=== PATIENT | female | born 1965 | race Hispanic/Latino ===

== ENCOUNTER 2016-09-12 07:13 | Day surgery (SDC) | payer OTHER ==
[2016-09-12 08:21] VITALS: BMI 26.6
[2016-09-12] MEDS ORDERED: Propofol 10 mg/ml Inj (20 ML) ONE (08:40)
[2016-09-12] MEDS ORDERED: Midazolam 2 MG/2 ML VIAL ONE (08:40)
--- NOTE | 2016-09-12 08:44 | CP.SDSHP ---
Same Day Surgery H & P - History Proposed Procedure: EGD Pre-Op Diagnosis: SEE NOTES - Previous Medical/Surgical History Cardiac: Hypertension Endocrine/Metabolic: Diabetes Neuro: Backaches Misc: Other Pain: 4.Moderate Pain - Allergies Allergies: Allergies Penicillins Allergy (Verified 04/04/16 13:02) ANAPHYLAXIS - Physical Exam General Appearance: N Vital Signs: Vital Signs 09/12/16 09/12/16 07:51 08:38 Temperature 97.8 F 97.8 F Pulse Rate 102 H 102 H Respiratory 16 16 Rate Blood Pressure 167/102 H 167/102 H O2 Sat by Pulse 100 100 Oximetry Mental Status: Alert & Oriented x3 Neuro: WNL Heart: Other Lungs: WNL GI: Other - {Optional Preform as Required} Breast: WNL Abdomen: Other Rectal: Other Integument: WNL : WNL Ortho: Other ENT: WNL - Impression Pt. Evaluated Today:Candidate for Anesthesia & Procedure: Yes - Date & Time Time: 08:43 Short Stay Discharge - Short Stay Discharge Admitting Diagnosis/Reason for Visit: DYSPEPSIA Disposition: HOME/ ROUTINE
[2016-09-12] MEDS ORDERED: Pantoprazole 40 mg EC Tab PO ONE (09:00)
[2016-09-12] MEDS ORDERED: Belladonna-Phenobarbital PO ONE (09:00)
[2016-09-12 09:12] VITALS: TEMP 98
[2016-09-12 09:42] VITALS: O2SAT 99
[2016-09-12 09:48] VITALS: RESP 18
[2016-09-12 10:08] VITALS: BP 145/88; PULSE 84
== END 2016-09-12 10:07 | disposition home or self-care (01) ==
LOC: C.ENDO 07:13
PROVIDERS: ATTEND Specialist
DX: K25.7 Chronic gastric ulcer without hemorrhage or perforation (principal); K44.9 Diaphragmatic hernia without obstruction or gangrene; B96.81 Helicobacter pylori [H. pylori] as the cause of diseases classified elsewhere
CPT/HCPCS: 43239; 82948; 88305; 88342; J2250; J2704

== ENCOUNTER 2017-02-20 05:51 | Day surgery (SDC) | payer OTHER ==
[2017-02-13 12:01] VITALS: BMI 30.2
[2017-02-20] MEDS ORDERED: Propofol 10 mg/ml Inj (20 ML) ONE (07:49)
[2017-02-20] MEDS ORDERED: Lidocaine Hydrochloride 5 ML INJ ONE (07:50)
--- NOTE | 2017-02-20 07:54 | CP.SDSHP ---
Same Day Surgery H & P - History Proposed Procedure: EGD Pre-Op Diagnosis: SEE NOTES - Previous Medical/Surgical History Cardiac: Hypertension Endocrine/Metabolic: Diabetes, Other Misc: Other Pain: 4.Moderate Pain - Allergies Allergies: Allergies Penicillins Allergy (Verified 12/31/16 08:50) ANAPHYLAXIS - Physical Exam General Appearance: N Vital Signs: Vital Signs 02/20/17 06:31 Temperature 97.6 F Pulse Rate 80 Respiratory 20 Rate Blood Pressure 192/101 H O2 Sat by Pulse 97 Oximetry Mental Status: Alert & Oriented x3 Neuro: WNL Heart: Other Lungs: WNL GI: WNL - {Optional Preform as Required} Breast: WNL Abdomen: Other Rectal: Other Integument: WNL : WNL Ortho: WNL ENT: WNL - Impression Pt. Evaluated Today:Candidate for Anesthesia & Procedure: Yes - Date & Time Time: 07:54 Short Stay Discharge - Short Stay Discharge Admitting Diagnosis/Reason for Visit: FUNCTIONAL DYSPEPSIA Disposition: HOME/ ROUTINE Referrals: Terry Qeuen JD, MD [Primary Care Provider] -
[2017-02-20] MEDS ORDERED: Lactated Ringer's 500 ML IV SCH (08:00)
[2017-02-20 08:37] VITALS: TEMP 98
[2017-02-20 08:38] VITALS: O2SAT 98
[2017-02-20] MEDS ORDERED: Belladonna-Phenobarbital PO ONE (08:40)
[2017-02-20] MEDS ORDERED: Pantoprazole 40 mg EC Tab PO ONE (08:45)
[2017-02-20 09:13] VITALS: BP 155/80; PULSE 95; RESP 20
== END 2017-02-20 09:05 | disposition home or self-care (01) ==
LOC: C.ENDO 05:51
PROVIDERS: ATTEND Specialist
DX: K30 Functional dyspepsia (principal); K29.00 Acute gastritis without bleeding; K29.50 Unspecified chronic gastritis without bleeding; B96.81 Helicobacter pylori [H. pylori] as the cause of diseases classified elsewhere; E11.9 Type 2 diabetes mellitus without complications; R10.13 Epigastric pain; Z88.0 Allergy status to penicillin; I10 Essential (primary) hypertension; K44.9 Diaphragmatic hernia without obstruction or gangrene
CPT/HCPCS: 45380; 82948; 88305; J2704; J2765; J7040; J7120